=== PATIENT | male | born 1990 | race Caucasian/White ===

== ENCOUNTER 2018-07-31 10:10 | Day surgery (SDC) | payer OTHER ==
[~2018-07-31 10:10] MED LIST: Lactated Ringers 1,000 ML IV SCH; Sodium Chloride 0.9% 10 ML Syringe FLUSH PRN
[2018-07-31] MEDS ORDERED: fentaNYL 100 MCG/2 ML SDV ONE (10:51)
[2018-07-31] MEDS ORDERED: Propofol 200 MG/20 ML SDV ONE ×4 (10:51→11:55)
[2018-07-31] MEDS ORDERED: Midazolam 1 MG/ML 2 ML SDV ONE (11:53)
--- NOTE | 2018-07-31 18:51 | OR ---
PREOPERATIVE DIAGNOSIS: Blood in stools. POSTOPERATIVE DIAGNOSIS: Blood in stools. PROCEDURE PERFORMED: Colonoscopy. INDICATION: The patient is a 28-year-old male with history of blood in the stool for the last 10 years, who presents for colonoscopy for further evaluation. PROCEDURE IN DETAIL: This was done in the procedure room. He was placed in left lateral position. Anesthesia given is anesthetic. First, a rectal exam was done, and was normal. Scope was introduced into the rectum and slowly advanced to the rectum, sigmoid, descending, transverse, and ascending colon until the cecum was reached. Upon reaching the cecum, scope was slowly withdrawn looking at all mucosal surfaces on the way out. No mucosal abnormalities, lesions, or polyps were noted. He did have moderate internal hemorrhoids and minimal external hemorrhoids. FINAL DIAGNOSIS: Hemorrhoids. BKD: 07/31/2018 12:14:06 MODL: 07/31/2018 18:44:59 /[id number]
== END 2018-07-31 13:54 | disposition home or self-care (01) ==
LOC: VM.SDS 10:10
PROVIDERS: ATTEND Surgery
DX: K64.8 Other hemorrhoids (principal); K64.4 Residual hemorrhoidal skin tags; R10.30 Lower abdominal pain, unspecified; F17.210 Nicotine dependence, cigarettes, uncomplicated; M54.5 Low back pain; E66.3 Overweight; Z68.28 Body mass index [BMI] 28.0-28.9, adult
CPT/HCPCS: 45378; J2250; J2704; J3010; J7120